=== PATIENT | male | born 2005 | race Caucasian/White ===

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

== ENCOUNTER 2024-03-16 22:22 | Emergency (ER) | payer OTHER ==
[~2024-03-16] VITALS: Ht 177.8 cm; Wt 65.9 kg
[2024-03-16 22:23] VITALS: BP 131/64; TEMP 97.7; O2SAT 97
[2024-03-17] MEDS: LIDOCAINE 2% MDV 20ML VIAL SC ONE (00:10)
== END 2024-03-17 00:53 | disposition home or self-care (01) ==
LOC: M ED 22:22
DX: S93.125A Dislocation of metatarsophalangeal joint of left lesser toe(s), initial encounter (principal); F17.200 Nicotine dependence, unspecified, uncomplicated; Y92.9 Unspecified place or not applicable; Y93.62 Activity, american flag or touch football; Y99.9 Unspecified external cause status